=== PATIENT | male | born 1950 | race Caucasian/White ===

== ENCOUNTER → 2017-04-13 | Outpatient (CLI) | payer OTHER ==
--- NOTE | 2017-04-14 08:44 | EKG ---
Date Performed: 04/13/2017 Time Performed: 10:25:52 PTAGE: 66 years EKG: Sinus rhythm with PVC(s) with 1st degree AV block QRS axis leftward for age IV conduction delay NO PREVIOUS TRACING DOCTOR: Amarilys Valentin Interpretating Date/Time 04/14/2017 08:44:34
== END ==
LOC: HCAV 10:08
PROVIDERS: ATTEND Orthopaedic Surgery
DX: I10 Essential (primary) hypertension (principal)
CPT/HCPCS: 93005